=== PATIENT | male | born 1955 | race African-American/Black ===

== ENCOUNTER 2020-10-24 08:16 | Inpatient (IN) | payer OTHER, BC ==
[2020-10-24 08:39] VITALS: BMI 21.9
[2020-10-24] MEDS ORDERED: SODIUM CHLORIDE 0.9% 500 ML INFUS.BAG IV ONE (09:28)
[2020-10-24 09:59] LABS: BASO % 0.6 % (0-2.0); EOS % 0.5 % (0-4.5); HEMATOCRIT 27.4 % (35.4-49); HEMOGLOBIN 8.8 GM/dL (11.7-16.9); LYMPH % 21.6 % (8-40); MCH 29.1 pg (25.7-33.7); MCHC 32.1 g/dl (32.0-35.9); MEAN CELL VOLUME 90.7 fl (80-96); MEAN PLT VOLUME 9.2 fl (7.5-11.1); MONO % 16.6 % (3.8-10.2); NEUT % 60.7 % (42.8-82.8); PLATELET COUNT 180 10^3/uL (134-434); RBC 3.03 M/mm3 (4.00-5.60); RDW 18.6 % (11.9-15.9); WHITE BLOOD COUNT 4.1 K/mm3 (4.0-10.0)
[2020-10-24 10:13] LABS: CHLORIDE 101 mmol/L (98-107); SODIUM 138 mmol/L (136-145)
[2020-10-24 10:16] LABS: ALBUMIN 2.9 g/dl (3.4-5.0); ANION GAP 13 MMOL/L (8-16); BLOOD UREA NITROGEN 69.8 mg/dL (7-18); CALCIUM 7.7 mg/dL (8.5-10.1); CO2 25 mmol/L (21-32); GLUCOSE,RANDOM 82 mg/dL (74-106); LIPASE 332 U/L (73-393); MAGNESIUM 2.5 mg/dL (1.8-2.4)
[2020-10-24 10:19] LABS: PHOSPHOROUS 5.6 mg/dL (2.5-4.9); SGOT/AST 38 U/L (15-37); SGPT/ALT 24 U/L (13-61)
[2020-10-24 10:21] LABS: BILIRUBIN,TOTAL 0.5 mg/dL (0.2-1); TOT PROT 6.5 g/dl (6.4-8.2)
[2020-10-24 10:22] LABS: ALK PHOS 116 U/L (45-117)
[2020-10-24 10:48] LABS: CREATININE 9.6 mg/dL (0.55-1.3)
[2020-10-24 11:51] LABS: INR 1.24 (0.83-1.09); PROTHROMBIN TIME (PATIENT) 15.1 SEC (9.7-13.0)
[2020-10-24 11:54] LABS: ACTIVATED PTT 35.3 SECONDS (25.2-36.5)
[2020-10-24] MEDS ORDERED: ACETAMINOPHEN 325 MG TABLET (FP) PO PRN (14:44)
[2020-10-24] MEDS ORDERED: HEPARIN NA (PORCINE) 5,000 UNITS/ML 1ML VIAL IVPUSH PRN ×2 (14:51)
[2020-10-24] MEDS ORDERED: HEPARIN - 25,000 UNIT in SODIUM CHLORIDE 495 ML IV SCH (15:00)
[2020-10-24] MEDS ORDERED: PT OWN MED DRAWER 7, Y5N ONE (18:18)
[2020-10-24] MEDS ORDERED: FLU VACCINE (FLULAVAL) PF 60 MCG/0.5 ML SYRINGE 2020-2021 IM ONE (18:50)
[2020-10-24] MEDS: METOPROLOL TARTRATE 25 MG TABLET (FP) PO SCH (21:59)
[2020-10-24] MEDS: APIXABAN 5 MG TABLET PO SCH (21:59)
[2020-10-24] MEDS ORDERED: APIXABAN 2.5 MG TABLET PO SCH (22:00)
[2020-10-24] MEDS ORDERED: ATORVASTATIN CA 40 MG TABLET (FP) PO SCH (22:00)
[2020-10-25] MEDS ORDERED: APIXABAN 2.5 MG TABLET PO SCH (11:54)
[2020-10-25] MEDS: ALBUMIN HUMAN 25% 12.5 GM/50 ML VIAL IVPB SCH ×4 (12:00→13:30)
[2020-10-25 12:03] LABS: BASO % 1.1 % (0-2.0); HEMATOCRIT 30.7 % (35.4-49); HEMOGLOBIN 9.8 GM/dL (11.7-16.9); LYMPH % 37.5 % (8-40); MCH 28.8 pg (25.7-33.7); MCHC 31.9 g/dl (32.0-35.9); MEAN CELL VOLUME 90.3 fl (80-96); MEAN PLT VOLUME 9.7 fl (7.5-11.1); MONO % 10.3 % (3.8-10.2); NEUT % 50.1 % (42.8-82.8); PLATELET COUNT 193 10^3/uL (134-434); RDW 18.6 % (11.9-15.9); WHITE BLOOD COUNT 3.1 K/mm3 (4.0-10.0)
[2020-10-25 12:18] LABS: CHLORIDE 102 mmol/L (98-107); SODIUM 139 mmol/L (136-145)
[2020-10-25 12:21] LABS: ANION GAP 14 MMOL/L (8-16); BLOOD UREA NITROGEN 81.1 mg/dL (7-18); CO2 23 mmol/L (21-32); GLUCOSE,RANDOM 103 mg/dL (74-106); MAGNESIUM 2.6 mg/dL (1.8-2.4)
[2020-10-25 12:24] LABS: PHOSPHOROUS 7.2 mg/dL (2.5-4.9); SGOT/AST 28 U/L (15-37); SGPT/ALT 21 U/L (13-61)
[2020-10-25 12:25] LABS: BILIRUBIN,TOTAL 0.6 mg/dL (0.2-1); TOT PROT 6.8 g/dl (6.4-8.2)
[2020-10-25 12:27] LABS: ALK PHOS 118 U/L (45-117)
[2020-10-25 12:38] LABS: CREATININE 11.2 mg/dL (0.55-1.3)
[2020-10-25] MEDS ORDERED: SODIUM CHLORIDE 250 ML IV PRN (13:00)
[2020-10-25] MEDS ORDERED: EPOETIN ALFA-EPBX 10,000 UNIT/ML VIAL IVPUSH ONE (13:00)
[2020-10-25] MEDS: METOPROLOL TARTRATE 25 MG TABLET (FP) PO SCH (17:45)
[2020-10-25] MEDS: APIXABAN 5 MG TABLET PO SCH (18:10)
[2020-10-25 19:10] VITALS: BP 130/82; PULSE 91; TEMP 97.8
== END 2020-10-25 19:45 | disposition home or self-care (01) | DRG 308 ==
LOC: JER 08:16 → JERBED 10:39 → J4S 17:32
PROVIDERS: ADMIT Student in an Organized Health Care Education/Training Program; ATTEND Internal Medicine
PROC: 5A1D70Z Performance of Urinary Filtration, Intermittent, Less than 6 Hours Per Day (ICD-10-PCS; principal; 2020-10-25)
DX: I48.92 Unspecified atrial flutter (principal); N18.6 End stage renal disease; I12.0 Hypertensive chronic kidney disease with stage 5 chronic kidney disease or end stage renal disease; I48.0 Paroxysmal atrial fibrillation; D63.8 Anemia in other chronic diseases classified elsewhere; E78.5 Hyperlipidemia, unspecified; M10.9 Gout, unspecified; Z99.2 Dependence on renal dialysis; I35.1 Nonrheumatic aortic (valve) insufficiency; R16.1 Splenomegaly, not elsewhere classified; R16.0 Hepatomegaly, not elsewhere classified; N28.1 Cyst of kidney, acquired
CPT/HCPCS: 36415; 71045-TC-FY; 74177-TC; 80053; 82550; 82553; 82728; 83540; 83550; 83690; 83735; 84100; 84484; 85025; 85610; 85730; 86803; 87340; 93005; 93010; 93306-TC; 99285-25; C9803; Q5106; U0003; U0005